=== PATIENT | female | born 1980 | race American Indian/Alaskan Native ===

== ENCOUNTER 2017-02-02 11:39 | Emergency (ER) | payer MEDICARE, MEDICAID ==
[2017-02-02] MEDS ORDERED: Ketorolac 60 MG/2 ML SDV IM ONE (13:28)
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
[2017-02-02 14:03] VITALS: BP 143/84
[2017-02-02] MEDS ORDERED: Acetaminophen/oxyCODONE 325-5 MG Tab PO ONE (15:21)
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
== END 2017-02-02 15:48 | disposition home or self-care (01) ==
LOC: JP.ED 11:39
DX: S80.02XA Contusion of left knee, initial encounter (principal); M62.838 Other muscle spasm; J45.909 Unspecified asthma, uncomplicated; F41.9 Anxiety disorder, unspecified; F32.9 Major depressive disorder, single episode, unspecified; E11.9 Type 2 diabetes mellitus without complications; F17.210 Nicotine dependence, cigarettes, uncomplicated; Z79.899 Other long term (current) drug therapy; Z98.890 Other specified postprocedural states; Z90.49 Acquired absence of other specified parts of digestive tract; Z88.1 Allergy status to other antibiotic agents; Z88.6 Allergy status to analgesic agent; Z88.5 Allergy status to narcotic agent; V89.2XXA Person injured in unspecified motor-vehicle accident, traffic, initial encounter
CPT/HCPCS: 72125; 73564; 96372; 99283; 99284; J1885